=== PATIENT | female | born 1995 | race Caucasian/White ===

== ENCOUNTER 2018-08-27 16:19 | Inpatient (IN) | payer MEDICAID ==
[2018-08-27] MEDS ORDERED: LACTATED RINGERS 1,000 ML ONE (16:36)
[2018-08-27 17:24] LABS: Hematocrit 33.1 % (30.3-42.9); Mean Corpuscular HGB Conc 33 % (30-34); Mean Corpuscular Volume 83 fl (79-97); Platelet Count 215 K/mm3 (140-440); Red Blood Count 3.98 M/mm3 (3.65-5.03); Red Cell Distribution Width 15.9 % (13.2-15.2)
[2018-08-27] MEDS ORDERED: LACTATED RINGERS 1,000 ML IV SCH (19:00)
[2018-08-27] MEDS ORDERED: BRETHINE SUB-Q PRN (19:08)
[2018-08-27] MEDS ORDERED: MINERAL OIL PO PRN (19:08)
[2018-08-27] MEDS ORDERED: XYLOCAINE 2% INFILTRATI ONE (19:08)
[2018-08-27] MEDS ORDERED: BRETHINE IVP PRN (19:08)
[2018-08-27] MEDS ORDERED: STADOL IV PRN (19:08)
[2018-08-27] MEDS ORDERED: PITOCin/NS 30 UNIT/500ML 30 UNITS/500 ML BAG IV SCH (19:15)
--- NOTE | 2018-08-27 19:20 | History and Physical Report ---
History of Present Illness Date of examination: 08/27/18 Date of admission: 08/27/18 16:19 Chief complaint: "Sent from the office for delivery" History of present illness: 22yo G 4 P 1 0 2 1 at 40 weeks 0 day here from the office for labor augmentation secondary to non-reassuring FHR. She had a nonreactive NST with late and variable decels. She reports +FMs and BHCs but denies VB. She is a [facility] patient who initiated care at 25 weeks gestation. She transferred care from [facility] where she had early and consistent care. Her course was complicated by anemia (on iron therapy). Labs: Opos, Antibody Screen neg, RI, VDRL NR, HBsAg neg, GC/CT neg, MSAFP neg, Diabetes Screen 120, GC/CT/Trich neg, GBS neg. 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) Family/Genetic History: none - Obstetrical History Expected Date of Delivery: 08/27/18 Actual Gestation: 40 Week(s) 0 Day(s) : 4 Para: 1 Hx # Term Pregnancies: 1 Number of Pregnancies: 0 Spontaneous Abortions: 1 Induced : 1 Number of Living Children: 1 #1 Gender: Male year: 2[age]014 (11/14/2014) Birthweight: 2.381 kg (5 lbs 4 oz) Method of Delivery: Vaginal Gestational age at delivery: 40 Complications: none Medications and Allergies Allergies Allergy/AdvReac Type Severity Reaction Status Date / Time clindamycin AdvReac Swelling Verified 08/27/18 17:17 Home Medications Medication Instructions Recorded Confirmed Last Taken Type Pnv,Calcium 72/Iron/Folic Acid 1 tab PO DAILY 09/30/13 11/14/13 11/13/13 09:00 History [Pnv Plus Multivit Tab] 1 tab Ferrous Sulfate [Feosol 325 MG tab] 325 mg PO BID #90 tablet 11/15/13 Unknown Rx HYDROcodone/APAP 5-325 [[place] 2 each PO Q6H PRN #20 tablet 11/15/13 Unknown Rx 5-325 mg TAB] Ibuprofen [Motrin 600 MG tab] 600 mg PO Q6H #30 tablet 11/15/13 Unknown Rx Vit-Fe Fumar-FA [ 1 each PO QDAY #60 tablet 11/15/13 Unknown Rx Vitamin] Active Meds: Active Medications Lactated Ringer's (Lactated Ringers) 1,000 mls @ 125 mls/hr IV DIRECT CAROL Review of Systems All systems: negative - Vital Signs Vital signs: Vital Signs Temp Pulse Resp BP 97.1 F L 85 18 137/82 08/27/18 16:58 08/27/18 16:58 08/27/18 16:58 08/27/18 16:58 Temp Pulse Resp BP Pulse Ox 97.1 F L 85 18 137/82 08/27/18 16:58 08/27/18 16:58 08/27/18 16:58 08/27/18 16:58 - Obstetrical FHR: category 1 FHR comments: baseline 140, moderate variability, + accels, no decels Uterine Contraction Monitor Mode: External Cervical Dilatation: 5 Cervical Effacement Percentage: 50 station: -2 Uterine Contraction Frequency (min): 7-8 Uterine Contraction Pattern: Regular Results Result Diagrams: 08/27/18 17:07 Abnormal lab results 08/27/18 Range/Units 17:07 RDW 15.9 H (13.2-15.2) % All other labs normal. Assessment and Plan - Patient Problems (1) 40 weeks gestation of Current Visit: Yes Status: Acute (2) Non-reassuring electronic monitoring tracing Current Visit: Yes Status: Acute Plan to address problem: Nonreactive NST at the office (3) Encounter for induction of labor Current Visit: Yes Status: Acute Plan to address problem: Admit to L&D with routine labor orders AROM @ 19:40, blood-tinged, small amount Pitocin for labor augmentation Anticipate vaginal delivery
[2018-08-27] MEDS ORDERED: PITOCin/NS 20 UNIT/1000ML DRIP 20 UNITS/1,000 ML BAG IV SCH (20:00)
[2018-08-27] MEDS: SUBLIMAZE IV PRN ×2 (20:59→23:02)
--- NOTE | 2018-08-27 23:37 | Procedure Note ---
OB Delivery Note - Delivery Date of Delivery: 08/27/18 (23:15) Surgeon: VANNESSA HENDRICKS (WILL) Estimated blood loss: 100cc - Vaginal Delivery presentation: vertex Delivery position: OA Intrapartum events: mult.variable deceleratio Delivery induction: none Delivery augmentation: rupture of membranes, pitocin Delivery monitor: external FHT, external uterine Route of delivery: (23:15) Delivery placenta: spontaneous (23:21) Delivery cord: 3 umbilical vessels Episiotomy: none Delivery laceration: none Anesthesia: intravenous Delivery comments: of a vigorous term 7 lbs 15 oz male on 08/27/18 @ 23:15. Baby placed [id number] on maternal abdomen. After 3 mins, umbilical cord double-clamped by WILL Hendricks and cut by FOB. Cord blood collected. Spontaneous delivery of placenta, Diogo-side presenting @ 23:21. Small lochia noted. Fundal massage and IV Pitocin bolus initiated. Fundus F/ML/U. Placenta intact; was discarded. Perineum intact. No lacerations present. Mom and baby in stable condition. - A at 1 minute: 8 at 5 minutes: 9 Gender: Male (7 lbs 15 oz (36.7 gm); 20 in)
[2018-08-27] MEDS ORDERED: PHENERGAN PO PRN (23:39)
[2018-08-27] MEDS ORDERED: BENADRYL PO PRN (23:39)
[2018-08-27] MEDS ORDERED: TUCKS PAD TP PRN (23:39)
[2018-08-27] MEDS ORDERED: DULCOLAX PR PRN (23:39)
[2018-08-27] MEDS ORDERED: MILK OF MAGNESIA PO PRN (23:39)
[2018-08-27] MEDS ORDERED: LANSINOH TP PRN (23:39)
[2018-08-27] MEDS ORDERED: TYLENOL PO PRN (23:39)
[2018-08-27] MEDS ORDERED: ZOFRAN IV PRN (23:39)
[2018-08-27] MEDS ORDERED: PHENERGAN PR PRN (23:39)
[2018-08-27] MEDS ORDERED: SODIUM CHLORIDE FLUSH SYRINGE 10 ML IV PRN (23:45)
[2018-08-28] MEDS: IBUPROFEN PO SCH ×3 (03:06→17:41)
--- NOTE | 2018-08-28 10:06 | Progress Note ---
Assessment and Plan - Patient Problems (1) Status post normal vaginal delivery Current Visit: No Status: Acute Plan to address problem: Continue routine PP orders Repeat H/H today at 1130 Anticipate d/c home in 24-48 hours Subjective - Subjective Date of service: 08/28/18 Principal diagnosis: Normal labor Interval history: See admission H & P; OB delivery summary Patient reports: appetite normal, voiding normally, pain well controlled (with medications), flatus, ambulating normally, no bowel movement : doing well, bottle feeding (and ) Objective - Vital Signs Latest vital signs: Vital Signs Temp Pulse Resp BP BP Pulse Ox 08/28/18 07:41 98.9 F 85 24 105/55 96 08/28/18 04:30 98.7 F 89 18 119/81 08/28/18 00:55 71 111/53 08/27/18 23:13 94 H 97 08/27/18 23:10 56 L 93 08/27/18 23:08 68 96 08/27/18 23:03 94 H 91 08/27/18 23:02 88 94 08/27/18 22:58 68 97 08/27/18 22:53 94 H 96 08/27/18 22:48 96 H 97 08/27/18 22:43 98 H 97 08/27/18 22:38 97 H 100 08/27/18 22:33 100 H 97 08/27/18 22:28 91 H 97 08/27/18 22:23 73 96 08/27/18 22:18 77 98 08/27/18 22:13 85 98 08/27/18 22:09 90 93 08/27/18 22:08 72 96 08/27/18 22:03 95 H 93 08/27/18 21:58 95 H 96 08/27/18 21:54 89 94 08/27/18 21:53 106 H 97 08/27/18 21:48 86 98 08/27/18 21:43 83 98 08/27/18 21:38 67 100 08/27/18 21:33 89 100 08/27/18 21:28 95 H 97 08/27/18 21:24 79 88 08/27/18 21:23 61 99 08/27/18 21:18 91 H 96 08/27/18 21:13 97 H 97 08/27/18 21:08 71 97 08/27/18 21:03 102 H 97 08/27/18 21:02 94 H 87 08/27/18 20:58 81 99 08/27/18 20:53 82 99 08/27/18 20:48 95 H 88 08/27/18 20:43 86 96 08/27/18 20:38 62 98 08/27/18 20:33 61 98 08/27/18 20:28 79 98 08/27/18 20:23 79 98 08/27/18 20:18 76 98 08/27/18 20:13 82 98 08/27/18 20:08 81 98 08/27/18 20:03 78 98 08/27/18 19:58 83 98 08/27/18 19:53 80 98 08/27/18 19:48 80 98 08/27/18 19:44 99 H 93 08/27/18 19:43 87 99 08/27/18 16:58 97.1 F L 85 18 137/82 Intake and Output 08/27/18 08/28/18 08/28/18 23:59 07:59 15:59 Intake Total 1.1 Balance 1.1 Intake: IV 1.1 PITOCin/NS 30 UNIT/500ML 1.1 30 units In 500 ml @ As Directed IV TITR CAROL Rx#: [id number] Other: # Voids Void 1 Weight 83.461 kg - Exam Breasts: Present: normal Cardiovascular: Present: Regular rate Lungs: Present: Normal air movement Abdomen: Present: soft, normal bowel sounds Uterus: Present: firm, fundal height below umbilicus (U-1) Extremities: Present: normal Deep Tendon Reflex Grade: Normal +2 - Labs Labs: Abnormal lab results 08/27/18 Range/Units 17:07 RDW 15.9 H (13.2-15.2) %
[2018-08-28] MEDS: FEOSOL PO SCH (10:30)
[2018-08-28] MEDS: PRENATAL VITAMIN PO SCH (10:30)
[2018-08-28 12:20] LABS: Hematocrit 28.1 % (30.3-42.9); Hemoglobin 9.2 gm/dl (10.1-14.3)
[2018-08-29] MEDS: NORCO 5/325 PO PRN ×2 (00:31→14:35)
[2018-08-29] MEDS: IBUPROFEN PO SCH ×2 (00:32→14:35)
--- NOTE | 2018-08-29 09:52 | Progress Note ---
Assessment and Plan - Patient Problems (1) Status post normal vaginal delivery Current Visit: No Status: Acute Plan to address problem: Discharge home later today F/U in office in 6 wks for PPV or sooner for any concerns/problems (2) Anemia Current Visit: Yes Status: Acute Qualifiers: Anemia type: other cause Other causes of anemia: acute posthemorrhagic Qualified Code(s): D62 - Acute posthemorrhagic anemia Plan to address problem: Asymptomatic Continue daily iron supplementation twice daily Subjective - Subjective Date of service: 08/29/18 Principal diagnosis: Normal labor Interval history: See admission H & P; OB delivery summary Patient reports: appetite normal, voiding normally, pain well controlled, flatus, bowel movement, ambulating normally [place]: other (Stated that peds team is going to check baby's blood around noon, to see if he needs to be under the [place] lights.), bottle feeding (and bottle feeding.) Objective - Vital Signs Latest vital signs: Vital Signs Temp Pulse Resp BP BP Pulse Ox 08/29/18 08:00 98.2 F 74 18 87/45 08/29/18 00:26 98.0 F 18 92/45 08/28/18 15:40 98.4 F 94 H 20 110/66 100 08/28/18 11:48 98.4 F 93 H 24 94/56 100 Intake and Output 08/28/18 08/29/18 08/29/18 23:59 07:59 15:59 Intake Total 520 300 320 Balance 520 300 320 Intake: Oral 520 320 Intake, Free Water 300 Other: Total, Intake Amount 200 320 Voiding Method Toilet # Voids Void 1 1 - Exam Breasts: Present: normal Cardiovascular: Present: Regular rate Lungs: Present: Normal air movement Abdomen: Present: soft, normal bowel sounds Uterus: Present: firm, fundal height below umbilicus (U-2) Extremities: Present: normal Deep Tendon Reflex Grade: Normal +2 - Labs Labs: Abnormal lab results 08/28/18 Range/Units 12:00 Hgb 9.2 L (10.1-14.3) gm/dl Hct 28.1 L (30.3-42.9) %
--- NOTE | 2018-08-29 09:57 | Discharge Summary ---
Providers - Providers Date of Admission: 08/27/18 16:19 Date of discharge: 08/29/18 (1500) Attending physician: MINAL MARTIN MD Primary care physician: MINAL MARTIN MD Hospitalization Reason for admission: active labor, IUP at term Delivery: Episiotomy: none Laceration: none Other procedures: none complications: none Discharge diagnosis: IUP at term delivered, other (anemia) [place] baby: male Hospital course: See admission H & P; OB delivery summary and PP progress notes Condition at discharge: Good Disposition: DC-01 TO HOME OR SELFCARE - Discharge Diagnoses (1) Status post normal vaginal delivery Status: Acute (2) Anemia Status: Acute Qualifiers: Anemia type: other cause Other causes of anemia: acute posthemorrhagic Qualified Code(s): D62 - Acute posthemorrhagic anemia Plan - Provider Discharge Summary Activity: routine, no sex for 6 weeks, no heavy lifting 4 weeks, no strenuous exercise Diet: routine Instructions: routine Additional instructions: [] Smoking cessation referral if applicable(refer to patient education folder for contact #) [] Refer to [facility]'s [facility] Booklet Call your doctor immediately for: * Fever > 100.5 * Heavy vaginal bleeding ( >1 pad per hour) * Severe persistent headache * Shortness of breath * Reddened, hot, painful area to leg or breast * Drainage or odor from incision. * Continue daily iron supplementation twice daily - Follow up plan Follow up: MINAL MARTIN MD [Primary Care Provider] - 6 Weeks
[2018-08-29] MEDS: FEOSOL PO SCH (14:35)
[2018-08-29] MEDS: PRENATAL VITAMIN PO SCH (14:35)
[2018-08-29 14:51] VITALS: BP 108/64
== END 2018-08-29 15:45 | disposition home or self-care (01) | DRG 775 ==
LOC: LD 16:19 → OB 08-28 02:09
PROVIDERS: ADMIT Obstetrics & Gynecology; ATTEND Obstetrics & Gynecology
PROC: 10E0XZZ Delivery of Products of Conception, External Approach (ICD-10-PCS; principal; 2018-08-27)
DX: O76 Abnormality in fetal heart rate and rhythm complicating labor and delivery (principal); O99.02 Anemia complicating childbirth; D62 Acute posthemorrhagic anemia; Z3A.40 40 weeks gestation of pregnancy; Z37.0 Single live birth
CPT/HCPCS: 36415; 85014; 85018; 85027; 86592; 86850; 86900; 86901; G0378; J2590; J3010; J7120

== ENCOUNTER 2018-09-09 00:45 | Emergency (ER) | payer BC, MEDICAID ==
--- NOTE | 2018-09-09 03:38 | Emergency Department Report ---
ED Rash HPI - HPI Chief Complaint: Skin Rash Stated Complaint: ALLERGIC REACTION,BODY RASH Time Seen by Provider: 09/09/18 03:27 Duration: 5 Days Location: Chest, Abdomen, Upper Extremities Suspected Cause: Unknown (congested liver) Rash Symptoms: Yes Itching, No Facial Swelling, No Tongue/Oral Swelling, No Breathing Difficulties, No Choking Sensation, No Wheezing/Dyspnea, No Peeling, No Blistering, No Fever, No Lightheaded, No Malaise, No Myalgias Severity: mild ED Review of Systems ROS: Stated complaint: ALLERGIC REACTION,BODY RASH Other details as noted in HPI Constitutional: denies: chills, fever Eyes: denies: eye pain, eye discharge, vision change ENT: denies: ear pain, throat pain Respiratory: denies: cough, shortness of breath, wheezing Cardiovascular: denies: chest pain, palpitations Endocrine: no symptoms reported Gastrointestinal: denies: abdominal pain, nausea, diarrhea Genitourinary: denies: urgency, dysuria, discharge Musculoskeletal: denies: back pain, joint swelling, arthralgia Skin: rash. denies: lesions Neurological: denies: headache, weakness, paresthesias Psychiatric: denies: anxiety, depression Hematological/Lymphatic: denies: easy bleeding, easy bruising ED Past Medical Hx - Past Medical History Previous Medical History?: Yes Hx Hypertension: No Hx Heart Attack/AMI: No Hx Congestive Heart Failure: No Hx Diabetes: No Hx Deep Vein Thrombosis: No Hx Pulmonary Embolism: No Hx Liver Disease: No Hx Renal Disease: No Hx Sickle Cell Disease: No Hx Headaches / Migraines: No Hx Seizures: No Hx Asthma: No Hx COPD: No Hx Tuberculosis: No Hx HIV: No Additional medical history: Low Iron - Surgical History Past Surgical History?: No - Social History Smoking Status: Never Smoker - Medications Home Medications: Home Medications Medication Instructions Recorded Confirmed Last Taken Type Pnv,Calcium 72/Iron/Folic Acid 1 tab PO DAILY 09/30/13 08/28/18 11/13/13 09:00 History [Pnv Plus Multivit Tab] 1 tab Ferrous Sulfate [Feosol 325 MG tab] 325 mg PO BID #90 tablet 11/15/13 08/28/18 08/28/18 Rx HYDROcodone/APAP 5-325 [[place] 2 each PO Q6H PRN #20 tablet 11/15/13 08/28/18 Unknown Rx 5-325 mg TAB] Ibuprofen [Motrin 600 MG tab] 600 mg PO Q6H #30 tablet 11/15/13 08/28/18 08/28/18 Rx Vit-Fe Fumar-FA [ 1 each PO QDAY #60 tablet 11/15/13 08/28/18 08/28/18 Rx Vitamin] Famotidine [Pepcid] 40 mg PO DAILY #14 tablet 09/09/18 Unknown Rx Mometasone Furoate [[place]] 45 gm TP BID #1 cream..g. 09/09/18 Unknown Rx hydrOXYzine HCL [Atarax] 25 mg PO Q6HR PRN #20 tablet 09/09/18 Unknown Rx Rash Exam - Exam General: Vital signs noted. No distress. Alert and acting appropriately. HEENT: No Periorbital Edema, No Conjuctival Injection, No Chemosis, No Perioral Edema, No Tongue Edema, No Uvular Edema, No Compromised Airway, No Drooling Lungs: Yes Good Air Exchange, No Wheezes, No [place], No Stridor, No Cough, No Labored Respirations, No Retractions, No Use of Accessory Muscles, No Other Abnormal Lung Sounds Heart: Yes Regular, No Murmur Skin: Yes Urticarial Rash, Yes Erythema, No Maculopapular Rash, No Morbilliform rash, No Bulla(e), No Excoriations, No Weeping, No Tenderness, No Edema, No Encrustations ED Course Vital Signs 09/09/18 09/09/18 00:54 02:07 Temperature 98.5 F 98.5 F Pulse Rate 76 75 Respiratory 18 18 Rate Blood Pressure 111/62 111/62 O2 Sat by Pulse 99 99 Oximetry Critical care attestation.: If time is entered above; I have spent that time in minutes in the direct care of this critically ill patient, excluding procedure time. ED Disposition Clinical Impression: Hives Disposition: -01 TO HOME OR SELFCARE Is pt being admited?: No Does the pt Need Aspirin: No Condition: Stable Instructions: Acute Rash (ED), Urticaria (ED) Referrals: PHI MITCHELL MD [Primary Care Provider] - 3-5 Days
[2018-09-09 04:09] VITALS: BP 110/67
== END 2018-09-09 04:07 | disposition home or self-care (01) ==
LOC: ED 00:45
DX: L50.9 Urticaria, unspecified (principal); Z79.899 Other long term (current) drug therapy; Z88.1 Allergy status to other antibiotic agents
CPT/HCPCS: 99282